=== PATIENT | female | born 1960 | race Caucasian/White ===

== ENCOUNTER 2022-10-22 15:26 | Inpatient (IN) | payer MEDICAID, OTHER ==
[~2022-10-22] VITALS: Ht 160 cm; Wt 54.4 kg
[2022-10-22 16:42] LABS: BASOPHILS % 0.7 % (0.0-2.0); EOSINOPHILS % 3.2 % (0.0-5.0); HEMATOCRIT. 37.3 % (36.0-48.0); HEMOGLOBIN. 12.8 g/dL (12.0-16.0); LYMPHOCYTES % 45.4 % (20.0-50.0); MEAN CORPUSCULAR HEMOGLOBIN 31.9 pg (28.0-32.0); MEAN CORPUSCULAR VOLUME 92.8 fL (81.0-99.0); MEAN PLATELET VOLUME 7.4 fl (7.4-10.4); MONOCYTES % 10.3 % (2.0-8.0); NEUTROPHILS % 40.4 % (40.0-76.0); PLATELET 289 x1000/uL (130-400); RED BLOOD CELL COUNT 4.02 mill/uL (4.2-5.4); RED CELL DISTRIBUTION WIDTH 12.8 % (11.6-14.6)
[2022-10-22 16:49] LABS: CHLORIDE 108 mEq/L (98-107)
[2022-10-22 16:56] LABS: ETHANOL BLOOD < 10 mg/dL (-10)
[2022-10-23 03:05] VITALS: BP 136/84; PULSE 61; RESP 17; TEMP 97.9
[2022-10-23 03:36] VITALS: BP 136/84; PULSE 61; RESP 17; TEMP 97.9
[2022-10-23] MEDS ORDERED: ONDANSETRON HCL 4MG TABLET PO PRN (07:30)
[2022-10-23 08:00] VITALS: BP 105/61; PULSE 75; RESP 20; TEMP 96.8
[2022-10-23] MEDS: ENOXAPARIN 40MG/0.4ML SYR SUBCUT SCH (09:00)
[2022-10-23] MEDS: FAMOTIDINE 20MG TABLET PO SCH ×2 (09:00→21:00)
[2022-10-23 09:49] LABS: CLARITY URINE CLOUDY (CLEAR); COLOR URINE YELLOW (YELLOW); KETONES URINE NEGATIVE (NEGATIVE); LEUKOCYTE ESTERASE URINE 3+ (NEGATIVE); NITRITE URINE POSITIVE (NEGATIVE); OCCULT BLOOD URINE NEGATIVE (NEGATIVE); PH URINE >=9.0 (4.5-8.0); PROTEIN URINE NEGATIVE (NEGATIVE); SPECIFIC GRAVITY URINE 1.011 (1.005-1.030)
[2022-10-23 10:16] LABS: *AMPHETAMINES SCREEN URINE NEGATIVE (NEGATIVE); *BARBITURATES SCREEN URINE NEGATIVE (NEGATIVE); *BENZODIAZEPINES SCREEN URINE NEGATIVE (NEGATIVE); *COCAINE SCREEN URINE NEGATIVE (NEGATIVE); CANNABINOID URINE SCREEN NEGATIVE (NEGATIVE); METHADONE URINE SCREEN NEGATIVE (NEGATIVE); OPIATES URINE SCREEN NEGATIVE (NEGATIVE); PHENCYCLIDINE URINE SCREEN NEGATIVE (NEGATIVE)
[2022-10-23 10:30] LABS: BASOPHILS % 0.7 % (0.0-2.0); EOSINOPHILS % 3.5 % (0.0-5.0); HEMATOCRIT. 37.3 % (36.0-48.0); HEMOGLOBIN. 12.9 g/dL (12.0-16.0); LYMPHOCYTES % 39.1 % (20.0-50.0); MEAN CORPUSCULAR HEMOGLOBIN 31.8 pg (28.0-32.0); MEAN CORPUSCULAR VOLUME 92.5 fL (81.0-99.0); MEAN PLATELET VOLUME 7.2 fl (7.4-10.4); MONOCYTES % 7.4 % (2.0-8.0); NEUTROPHILS % 49.3 % (40.0-76.0); PLATELET 310 x1000/uL (130-400); RED BLOOD CELL COUNT 4.04 mill/uL (4.2-5.4); RED CELL DISTRIBUTION WIDTH 12.7 % (11.6-14.6)
[2022-10-23 10:42] LABS: CHLORIDE 109 mEq/L (98-107)
[2022-10-23 10:55] LABS: HDL CHOLESTEROL 55 mg/dL (40-59); LDL CHOLESTEROL 63 mg/dL (5-100)
[2022-10-23 11:34] LABS: HEPATITIS B SURFACE ANTIGEN NEGATIVE
[2022-10-23 12:00] VITALS: BP 105/61; PULSE 75; RESP 20; TEMP 96.8
[2022-10-23] MEDS ORDERED: POTASSIUM CHLORIDE 20MEQ TABLET SR PO SCH (12:00)
[2022-10-23] MEDS ORDERED: KETOROLAC 15MG/ML VIAL IV PRN (12:45)
[2022-10-23] MEDS ORDERED: CEFTRIAXONE 1,000 MG in DEXTROSE 5% WATER 50 ML IV SCH (13:00)
[2022-10-23 16:00] VITALS: BP 139/87; PULSE 63; RESP 20; TEMP 97.9
[2022-10-23] MEDS ORDERED: FAMOTIDINE 20MG TABLET PO SCH (21:00)
[2022-10-23] MEDS: ACETAMINOPHEN 325MG TABLET PO PRN (21:44)
[2022-10-24] VITALS: BP 92/55; PULSE 79; RESP 18; TEMP 98.4
[2022-10-24 08:00] VITALS: BP 105/75; PULSE 65; RESP 17; TEMP 97.7
[2022-10-24] MEDS: ENOXAPARIN 40MG/0.4ML SYR SUBCUT SCH ×2 (10:41→16:02)
[2022-10-24] MEDS: ACETAMINOPHEN 325MG TABLET PO PRN (10:45)
[2022-10-24] MEDS: FAMOTIDINE 20MG TABLET PO SCH ×2 (10:46→21:00)
[2022-10-24 12:00] VITALS: BP 108/68; PULSE 68; RESP 18; TEMP 97.6
[2022-10-24 16:00] VITALS: BP 106/65; PULSE 70; RESP 16; TEMP 97.5
[2022-10-24] MEDS ORDERED: CEPHALEXIN 250MG CAPSULE PO SCH (17:00)
[2022-10-24 20:00] VITALS: BP 109/65; PULSE 59; RESP 18; TEMP 98.1
[2022-10-24] MEDS: CEPHALEXIN 250MG CAPSULE PO SCH (21:00)
[2022-10-25] VITALS: BP 110/60; PULSE 65; RESP 18; TEMP 98.4
[2022-10-25] MEDS: CEFTRIAXONE 1,000 MG in DEXTROSE 5% WATER 50 ML IV SCH (01:00)
[2022-10-25] MEDS: CEPHALEXIN 250MG CAPSULE PO SCH ×3 (02:35→15:00)
[2022-10-25 04:00] VITALS: BP 134/71; PULSE 63; RESP 20; TEMP 98.2
[2022-10-25 08:00] VITALS: BP 121/82; PULSE 77; RESP 20; TEMP 97.5
[2022-10-25 12:00] VITALS: BP 93/53; PULSE 83; RESP 20; TEMP 97.7
[2022-10-25] MEDS: FAMOTIDINE 20MG TABLET PO SCH ×2 (14:01→21:00)
[2022-10-25] MEDS ORDERED: LEVO-65 MT (14:23)
[2022-10-25 16:00] VITALS: BP 130/81; PULSE 75; RESP 20; TEMP 96.3
[2022-10-25 20:00] VITALS: BP 111/81; PULSE 85; RESP 19; TEMP 98.1
[2022-10-25] MEDS ORDERED: *PATIENT'S OWN MEDICATION STORAGE XX SCH (20:45)
[2022-10-26] VITALS: BP 137/83; PULSE 64; RESP 18; TEMP 97.6
[2022-10-26] MEDS: CEFTRIAXONE 1,000 MG in DEXTROSE 5% WATER 50 ML IV SCH (01:56)
[2022-10-26 04:00] VITALS: BP 111/79; PULSE 79; RESP 19; TEMP 97.9
[2022-10-26 08:00] VITALS: BP 126/80; PULSE 68; RESP 20; TEMP 97.9
[2022-10-26] MEDS: FAMOTIDINE 20MG TABLET PO SCH ×2 (09:00→20:47)
[2022-10-26 12:00] VITALS: BP 115/54; PULSE 108; RESP 19; TEMP 99.9
[2022-10-26 16:00] VITALS: BP 112/63; PULSE 85; RESP 20; TEMP 97.8
[2022-10-26 20:00] VITALS: BP 162/66; PULSE 81; RESP 16; TEMP 97.4
[2022-10-26] MEDS ORDERED: BISACODYL 10MG SUPP PR PRN (22:45)
[2022-10-27] MEDS: CEFTRIAXONE 1,000 MG in DEXTROSE 5% WATER 50 ML IV SCH (00:29)
[2022-10-27 02:00] VITALS: RESP 16
[2022-10-27 04:00] VITALS: RESP 20
[2022-10-27 08:00] VITALS: BP 106/72; PULSE 80; RESP 20; TEMP 79.9; TEMP 97.9
[2022-10-27] MEDS: ACETAMINOPHEN 325MG TABLET PO PRN (08:26)
[2022-10-27] MEDS: FAMOTIDINE 20MG TABLET PO SCH ×2 (08:26→22:27)
[2022-10-27 12:00] VITALS: BP 110/67; PULSE 77; RESP 20; TEMP 78.1; TEMP 99.8
[2022-10-27 16:00] VITALS: BP 109/69; PULSE 92; RESP 20; TEMP 98.2
[2022-10-27 20:00] VITALS: BP 146/123; PULSE 60; RESP 20; TEMP 98.1
[2022-10-28] VITALS: BP 82/52; PULSE 94; RESP 16; TEMP 97.9
[2022-10-28] MEDS: CEFTRIAXONE 1,000 MG in DEXTROSE 5% WATER 50 ML IV SCH (02:06)
[2022-10-28 03:36] VITALS: BP 90/60; PULSE 94; TEMP 97.8; O2SAT 98
[2022-10-28 04:00] VITALS: BP 135/82; PULSE 80; RESP 18; TEMP 97.9
== END 2022-10-28 04:20 | disposition home or self-care (01) | DRG 463 ==
LOC: ER 17:41 → EDBEDREQTM 10-23 00:39 → EDBEDREQ 10-23 00:39 → 6WST 10-23 04:42
PROVIDERS: ADMIT Internal Medicine; ATTEND Internal Medicine
DX: N39.0 Urinary tract infection, site not specified (principal); E44.1 Mild protein-calorie malnutrition; E87.1 Hypo-osmolality and hyponatremia; R62.7 Adult failure to thrive; Z68.21 Body mass index [BMI] 21.0-21.9, adult; Z99.3 Dependence on wheelchair
CPT/HCPCS: 36415; 72131; 80053; 80061; 80305; 80320; 81003; 85025; 86803; 87340; 97162; 99285; A6261; J0696; J1650; J1885; J7060; G0480